=== PATIENT | female | born 1950 | race Caucasian/White ===

== ENCOUNTER 2018-09-17 13:13 | Outpatient (CLI) | payer MEDICARE ==
--- NOTE | 2018-09-17 15:23 | RAD ---
CHEST TWO VIEWS: 09/17/2018 PROVIDED CLINICAL HISTORY: Dyspnea. COMPARISON: 08/04/2018 FINDINGS: The cardiac and mediastinal silhouette is unchanged in appearance. Right middle lobe consolidation a ppears similar to the prior examination. The known left lower lobe atelectatic change is relatively inconspicuous radiographically. There is no pleural fluid or pneumothorax apparent. Emphysematous c hanges are seen. IMPRESSION: Persistent right middle lobe consolidation. Assessment for persistence of left lower lobe segmental atelectasis is limited radiographically. POS: TPC
== END 2018-09-17 13:14 | disposition home or self-care (01) ==
LOC: RAD 13:13
PROVIDERS: ATTEND Internal Medicine
DX: R06.00 Dyspnea, unspecified (principal); J98.11 Atelectasis
CPT/HCPCS: 71046

== ENCOUNTER 2018-11-06 09:10 | Outpatient (CLI) | payer MEDICARE ==
--- NOTE | 2018-11-06 12:08 | CT ---
CT Chest WO Con History: [Preop. COPD. Pulmonary infiltrate.] Comparison: Chest [address] angiogram chest June 2019 Findings: Moderate centrilobular emphysematous changes. No interval improvement of the consolidation within the right middle lobe and left lower lobe with endobronchial debris. No pneumothorax or effusi on. Sternum and manubrium are intact. Advanced degenerative changes left glenohumeral joint. No acute dis placed rib fracture. There is likely high-grade intrahepatic biliary dilatation. Impression: 1. Similar appearance of the consolidation with air bronchograms in the right middle lobe and left lo wer lobe with multiple debris-filled bronchi. This may reflect chronic bronchitis and mucous plugging versus less likely endobronchial obstructing masses. Bronchoscopic evaluation is warranted. 2. There is likely high-grade intrahepatic biliary dilatation. CT abdomen pelvis with contrast high r ecommended. Code:T
== END 2018-11-06 09:11 | disposition home or self-care (01) ==
LOC: CP 09:10 → CT 09:11
PROVIDERS: ATTEND Internal Medicine
DX: J44.9 Chronic obstructive pulmonary disease, unspecified (principal); R91.8 Other nonspecific abnormal finding of lung field
CPT/HCPCS: 71250; 94060; 94727; 94729

== ENCOUNTER 2020-11-08 01:14 | Inpatient (IN) | payer MEDICARE ==
[2020-11-08] MEDS ORDERED: Succinylcholine 200 MG/10 ml SYRINGE FS ONE (01:19)
[2020-11-08] MEDS ORDERED: Vecuronium 10 MG VIAL ONE (01:31)
[2020-11-08] MEDS ORDERED: Fentanyl 100 MCG/2 ML VIAL ONE ×2 (01:31→03:18)
[2020-11-08] MEDS ORDERED: Water For Inject, Bacteriostat 30 ML ONE (01:32)
[2020-11-08 01:44] LABS: PTT 24.3 sec (22.9-36.1)
[2020-11-08 01:46] LABS: Hemoglobin 15.7 g/dL (12.0-16.0); Mean Corpuscular HGB CONC 30.8 g/dL (32.0-36.0); Mean Corpuscular Hemoglobin 28.7 pg (27.0-31.0); Mean Corpuscular Volume 93.3 fL (78.0-98.0); Platelet Count 301 thou/uL (130-400); RBC Distribution Width 12.1 % (11.5-14.5); Red Blood Cell (RBC) Count 5.45 mill/uL (4.20-5.40); White Blood Cell (WBC) Count 31.9 thou/uL (4.8-10.8)
[2020-11-08 01:46] LABS: Actual Bicarbonate (HCO3a) 29.1 mEq/L (22-28); Analyzer IN Cardio ER; Base Excess (BEa) -0.5 mEq/L (-2.0 to +3.0); Calcium, Ionized (arterial) 1.14 mmol/L (1.12-1.30); Carboxyhemoglobin (COHb) 2.4 gm% (0.0-3.0); Hemoglobin (Hb) 16.1 g/dL (12.0-16.0); O2 Tension (PaO2), arterial 106.2 mmHg (> 80.0); Potassium - ABG Lab 4.41 mmol/L (3.70-5.30)
[2020-11-08 01:47] LABS: Lactic Acid 1.2 mmol/L (0.5-2.2)
[2020-11-08 01:48] LABS: CO2 Tension 69.7 mmHg (35.0-45.0); Puncture Site RRA; pH, Arterial 7.24 (7.35-7.45)
[2020-11-08 01:49] LABS: ALV-art Gradient 519.675 mmHg (0-20)
[2020-11-08 01:52] LABS: ALT (SGPT) 25 U/L (8-55)
[2020-11-08 01:54] LABS: Band 4 % (5-11); Eosinophils 2 % (0-10); Lymphocytes 20 % (21-51); MDiff Complete? YES; Monocytes 4 % (0-10); Neutrophil 70 % (42-75)
[2020-11-08 02:07] LABS: AST (SGOT) 28 U/L (5-34); Alkaline Phosphatase 109 U/L (40-110); Anion Gap 18 mmol/L (10-20); BUN (Urea Nitrogen) 24 mg/dL (9.8-20.1); Bilirubin, Total 0.4 mg/dL (0.2-1.2); Calc. Creatinine Clearance 0 mL/min (70-130); Calcium 8.3 mg/dL (7.8-10.44); Carbon Dioxide 21 mmol/L (23-31); Chloride 101 mmol/L (98-107); Globulin 3.3 g/dL (2.4-3.5); Glucose 137 mg/dL (80-115); Potassium 4.6 mmol/L (3.5-5.1); Protein, Total 7.3 g/dL (5.8-8.1); Sodium 135 mmol/L (136-145)
[2020-11-08] MEDS ORDERED: Propofol 1,000 MG/100 ML VIAL IV ONE (02:13)
[2020-11-08] MEDS ORDERED: Fentanyl CADD 100 ML IV SCH ×3 (02:15→07:15)
[2020-11-08] MEDS ORDERED: Vancomycin 1 GM/200 ML BAG ONE (02:47)
[2020-11-08] MEDS ORDERED: Cefepime 2 GM VIAL ONE (02:47)
[2020-11-08 02:49] LABS: CKMB 2.5 ng/mL (0-6.6)
[2020-11-08 04:08] LABS: Bilirubin Negative (Negative); Blood, Urine 1+ (Negative); Clarity Clear (Clear); Glucose, Urine (Dipstick) Normal (Negative); Ketone, Urine Negative (Negative); Leukocyte Negative Leu/uL (Negative); Nitrite 1+ (Negative); Protein, Urine (Dipstick) 100 mg/dL (Neg-Trace); RBC/HPF 0-3 HPF (0-3); Specific Gravity, Urine 1.026 (1.002-1.036); Squamous Epithelial None Seen HPF (0-3); Urobilinogen Normal mg/dL (Less than 2); pH, Urine 6.5 (5.0-9.0)
[2020-11-08 04:09] LABS: Bacteria/HPF 2+ HPF (None Seen)
[2020-11-08 04:14] LABS: Amphetamine Not Detected (NotDetected); Barbiturates Screen Not Detected (NotDetected); Benzodiazepine Screen Not Detected (NotDetected); Cocaine Metabolite Screen Not Detected (NotDetected); Medtox Control Line Valid? VALID (VALID); Medtox Reader # READER 4; Methadone Not Detected (NotDetected); Methamphetamine Not Detected (NotDetected); Opiate Screen Not Detected (NotDetected); Oxycodone Screen Not Detected (NotDetected); Phencyclidine (PCP) Not Detected (NotDetected); THC/Cannabinoid Screen Detected (NotDetected); Tricyclic Screen Not Detected (NotDetected)
[2020-11-08 04:22] LABS: SARS-CoV-2 NAA Rapid Test Not Detected (NotDetected)
[2020-11-08] MEDS ORDERED: Fentanyl BOLUS 250 ML IVPB PRN ×2 (05:15→07:15)
[2020-11-08] MEDS ORDERED: Propofol BOLUS 1,000 MG/100 ML VIAL IV PRN ×2 (05:15→07:15)
[2020-11-08] MEDS ORDERED: Lorazepam 2 MG/ML VIAL SLOW IVP PRN ×2 (05:15→07:15)
[2020-11-08] MEDS ORDERED: Propofol 1,000 MG/100 ML VIAL IV PRN ×2 (05:15→07:15)
[2020-11-08] MEDS ORDERED: Morphine 2 MG/ML VIAL SLOW IVP PRN (05:15)
[2020-11-08] MEDS ORDERED: DISCONTINUE PREVIOUS NARCOTIC PAIN MEDICATIONS AND BENZODIAZEPINES FS SCH (05:15)
[2020-11-08] MEDS ORDERED: Ondansetron ODT 4 MG TAB PO PRN (06:20)
[2020-11-08] MEDS ORDERED: Ondansetron PF 4 MG/2 ML Vial IVP PRN (06:20)
[2020-11-08] MEDS ORDERED: Ventilator Sedation Protocol 1 EACH FS SCH (06:30)
[2020-11-08] MEDS ORDERED: cefTRIAXone\\ROCEPHIN 1 GM in Sodium Chloride 0.9% 100 ML IVPB SCH ×2 (07:00→12:45)
[2020-11-08] MEDS ORDERED: Iopamidol-370 76% 500 ML 1 ML ONE (08:46)
[2020-11-08] MEDS: Enoxaparin Sodium 40 MG/0.4 ML SYRINGE SC SCH (09:31)
[2020-11-08] MEDS: methylPREDNISolone Sod Succ 40 MG VIAL IVP SCH ×3 (09:31→21:51)
[2020-11-08] MEDS ORDERED: Acetaminophen 650 MG Suppository PR PRN (12:18)
[2020-11-08] MEDS ORDERED: Acetaminophen 325 MG TAB PO PRN (12:18)
[2020-11-08] MEDS: Morphine 2 MG/ML VIAL SLOW IVP PRN ×2 (20:10→23:01)
[2020-11-08] MEDS ORDERED: Famotidine/PF 20 mg/2ml Vial SLOW IVP SCH (21:00)
[2020-11-08] MEDS: Famotidine 20 MG TAB PO SCH (21:51)
[2020-11-09] MEDS: Morphine 2 MG/ML VIAL SLOW IVP PRN ×3 (01:32→06:01)
[2020-11-09] MEDS: methylPREDNISolone Sod Succ 40 MG VIAL IVP SCH ×4 (02:10→22:12)
[2020-11-09 03:35] LABS: Hemoglobin 13.3 g/dL (12.0-16.0); Mean Corpuscular HGB CONC 31.4 g/dL (32.0-36.0); Mean Corpuscular Hemoglobin 29.1 pg (27.0-31.0); Mean Corpuscular Volume 92.8 fL (78.0-98.0); Mean Platelet Volume 7.1 fL (7.4-10.4); Platelet Count 183 thou/uL (130-400); RBC Distribution Width 12.2 % (11.5-14.5); Red Blood Cell (RBC) Count 4.57 mill/uL (4.20-5.40); White Blood Cell (WBC) Count 29.6 thou/uL (4.8-10.8)
[2020-11-09 03:40] LABS: Anion Gap 12 mmol/L (10-20); BUN (Urea Nitrogen) 20 mg/dL (9.8-20.1); Calc. Creatinine Clearance 89 mL/min (70-130); Calcium 8.5 mg/dL (7.8-10.44); Carbon Dioxide 25 mmol/L (23-31); Chloride 99 mmol/L (98-107); Glucose 161 mg/dL (80-115); Potassium 4.2 mmol/L (3.5-5.1); Sodium 132 mmol/L (136-145)
[2020-11-09 04:33] LABS: Band 4 % (5-11); Lymphocytes 2 % (21-51); MDiff Complete? YES; Monocytes 6 % (0-10); Neutrophil 88 % (42-75)
[2020-11-09 06:51] VITALS: BMI 26.8
[2020-11-09] MEDS ORDERED: HYDROcodone/Acetaminophen 5/325 mg Tablet PO PRN ×2 (08:23→08:24)
[2020-11-09] MEDS ORDERED: Acetaminophen 325 MG TAB PO PRN (08:23)
[2020-11-09] MEDS ORDERED: DC Sedation Protocol FS ONE (08:27)
[2020-11-09] MEDS ORDERED: Fentanyl 100 MCG/2 ML VIAL SLOW IVP PRN (08:27)
[2020-11-09] MEDS: cefTRIAXone\\ROCEPHIN 2 GM in Sodium Chloride 0.9% 100 ML IVPB SCH (08:35)
[2020-11-09] MEDS: Enoxaparin Sodium 40 MG/0.4 ML SYRINGE SC SCH (08:35)
[2020-11-09] MEDS: Famotidine 20 MG TAB PO SCH ×2 (08:35→21:10)
[2020-11-09] MEDS: Fentanyl 100 MCG/2 ML VIAL SLOW IVP PRN ×3 (10:35→19:51)
[2020-11-09] MEDS: traMADol HCl 50 MG TAB PO PRN (21:57)
[2020-11-09] MEDS ORDERED: Bupropion 100 MG SR TAB PO SCH (22:45)
[2020-11-09] MEDS ORDERED: Pregabalin 50 MG CAP PO SCH (22:45)
[2020-11-10] MEDS: Morphine ER 30 MG TAB PO SCH ×2 (00:51→09:37)
[2020-11-10] MEDS: methylPREDNISolone Sod Succ 40 MG VIAL IVP SCH ×2 (03:47→09:40)
[2020-11-10] MEDS: traMADol HCl 50 MG TAB PO PRN (05:39)
[2020-11-10] MEDS ORDERED: Bupropion 100 MG SR TAB PO SCH (09:00)
[2020-11-10] MEDS ORDERED: Pregabalin 50 MG CAP PO SCH (09:00)
[2020-11-10] MEDS ORDERED: Amlodipine 5 MG TAB PO SCH (09:00)
[2020-11-10] MEDS ORDERED: Non-Formulary Item 1 EACH (Buprenorphine Hcl [Belbuca] 300 MCG Film) PO SCH (09:00)
[2020-11-10] MEDS: cefTRIAXone\\ROCEPHIN 2 GM in Sodium Chloride 0.9% 100 ML IVPB SCH (09:22)
[2020-11-10] MEDS: Enoxaparin Sodium 40 MG/0.4 ML SYRINGE SC SCH (09:35)
[2020-11-10] MEDS: Famotidine 20 MG TAB PO SCH (09:40)
[2020-11-10 11:16] LABS: ALT (SGPT) 43 U/L (8-55); AST (SGOT) 13 U/L (5-34); Albumin 3.2 g/dL (3.4-4.8); Alkaline Phosphatase 91 U/L (40-110); Anion Gap 12 mmol/L (10-20); BUN (Urea Nitrogen) 22 mg/dL (9.8-20.1); Bilirubin, Total 0.4 mg/dL (0.2-1.2); Calc. Creatinine Clearance 82 mL/min (70-130); Calcium 8.5 mg/dL (7.8-10.44); Carbon Dioxide 22 mmol/L (23-31); Chloride 103 mmol/L (98-107); Globulin 2.9 g/dL (2.4-3.5); Glucose 192 mg/dL (80-115); Magnesium 2.1 mg/dL (1.6-2.6); Phosphorus 2.3 mg/dL (2.3-4.7); Potassium 4.2 mmol/L (3.5-5.1); Protein, Total 6.1 g/dL (5.8-8.1); Sodium 133 mmol/L (136-145)
[2020-11-10 11:42] LABS: #Lymphocytes 0.4 thou/uL (1.20-3.40); #Monocytes 0.7 thou/uL (0.11-0.59); #Neutrophils 17.7 thou/uL (1.40-6.50); %Eosinophils 0.1 % (0.0-10.0); %Lymphocytes 2.1 % (21.0-51.0); %Monocytes 3.9 % (0.0-10.0); Hemoglobin 13.6 g/dL (12.0-16.0); MDiff Complete? YES; Mean Corpuscular HGB CONC 32.1 g/dL (32.0-36.0); Mean Corpuscular Volume 93.5 fL (78.0-98.0); Mean Platelet Volume 5.4 fL (7.4-10.4); Platelet Count 224 thou/uL (130-400); Platelet Morphology Comment Appears Adequate; Polychromasia SLIGHT = 2-3 cells (100X) (0-2/hpf); RBC Distribution Width 12.2 % (11.5-14.5); Red Blood Cell (RBC) Count 4.54 mill/uL (4.20-5.40); Small Platelets SLIGHT; White Blood Cell (WBC) Count 18.8 thou/uL (4.8-10.8)
[2020-11-10 13:54] VITALS: BP 162/90; TEMP 98.2
[2020-11-10] MEDS ORDERED: Amoxicillin/Potassium Clav 875 MG TAB PO SCH (21:00)
[2020-11-11] MEDS ORDERED: predniSONE 20 MG TAB PO SCH (08:00)
== END 2020-11-10 16:30 | disposition home or self-care (01) | DRG 208 ==
LOC: ERS 01:14 → CCU 01:40 → ONC 11-09 22:54
PROVIDERS: ADMIT Student in an Organized Health Care Education/Training Program; ATTEND Internal Medicine
PROC: 0BCB8ZZ Extirpation of Matter from Left Lower Lobe Bronchus, Via Natural or Artificial Opening Endoscopic (ICD-10-PCS; principal; 2020-11-08)
PROC: 5A1935Z Respiratory Ventilation, Less than 24 Consecutive Hours (ICD-10-PCS; 2020-11-08)
PROC: 0BH17EZ Insertion of Endotracheal Airway into Trachea, Via Natural or Artificial Opening (ICD-10-PCS; 2020-11-08)
PROC: 0D9670Z Drainage of Stomach with Drainage Device, Via Natural or Artificial Opening (ICD-10-PCS; 2020-11-08)
DX: J96.21 Acute and chronic respiratory failure with hypoxia (principal); A41.9 Sepsis, unspecified organism; R65.20 Severe sepsis without septic shock; J69.0 Pneumonitis due to inhalation of food and vomit; T84.021A Dislocation of internal left hip prosthesis, initial encounter; J44.0 Chronic obstructive pulmonary disease with (acute) lower respiratory infection; E87.1 Hypo-osmolality and hyponatremia; F41.9 Anxiety disorder, unspecified; J44.9 Chronic obstructive pulmonary disease, unspecified; I10 Essential (primary) hypertension; G89.29 Other chronic pain; M54.9 Dorsalgia, unspecified; J96.22 Acute and chronic respiratory failure with hypercapnia; Z90.49 Acquired absence of other specified parts of digestive tract; Z98.890 Other specified postprocedural states; Z79.899 Other long term (current) drug therapy; Z87.891 Personal history of nicotine dependence; Z88.8 Allergy status to other drugs, medicaments and biological substances; Z20.822 Contact with and (suspected) exposure to COVID-19
CPT/HCPCS: 0240U; 31500; 31624; 36415; 36416; 36600; 51702; 70450; 71045; 71275; 72125; 72170; 80048; 80053; 80306; 81003; 81015; 82553; 82805; 83605; 83735; 83880; 84100; 84484; 85025; 85379; 85610; 85730; 86850; 86900; 86901; 87040; 87070; 87086; 87205; 93005; 94002; 94640; 96365; 96366; 96368; 96375; 96376; J0692; J0696; J1650; J2270; J2704; J2920; J3010; J3370; J3490; J7620; Q9967